=== PATIENT | female | born 1945 | race Two or more races ===

== ENCOUNTER 2023-08-16 22:06 | Emergency (ER) | payer OTHER, MEDICAID ==
[~2023-08-16] VITALS: Ht 162.6 cm; Wt 70.8 kg
[~2023-08-16 22:06] MED LIST: BUS5 PO; MULT-2253 PO; OSC500 PO; SENN-72 PO
[2023-08-16 22:13] VITALS: BP 122/74; PULSE 84; RESP 14; TEMP 97.3; O2SAT 96
[2023-08-16 22:25] VITALS: O2SAT 98
[2023-08-16] MEDS ORDERED: BACI-105 TP (22:48)
[2023-08-16] MEDS: BACITRACIN OINT 500 UNITS/GM PKT TP ONE (23:00)
[2023-08-16 23:15] VITALS: BP 117/70; PULSE 78; RESP 15; TEMP 97.9; O2SAT 98
== END 2023-08-16 23:15 | disposition home or self-care (01) ==
LOC: MED 22:06
DX: S00.511A Abrasion of lip, initial encounter (principal); S00.81XA Abrasion of other part of head, initial encounter; E11.9 Type 2 diabetes mellitus without complications; F03.90 Unspecified dementia, unspecified severity, without behavioral disturbance, psychotic disturbance, mood disturbance, and anxiety; E78.5 Hyperlipidemia, unspecified; Z86.69 Personal history of other diseases of the nervous system and sense organs; Z79.899 Other long term (current) drug therapy; Z88.8 Allergy status to other drugs, medicaments and biological substances; Z88.4 Allergy status to anesthetic agent; Y08.89XA Assault by other specified means, initial encounter; Y93.89 Activity, other specified; Y92.89 Other specified places as the place of occurrence of the external cause; Y99.8 Other external cause status
CPT/HCPCS: 90471; 90715; 99283

== ENCOUNTER 2023-12-02 18:35 | Emergency (ER) | payer OTHER, MEDICAID ==
[~2023-12-02] VITALS: Ht 157.5 cm; Wt 48.1 kg
[~2023-12-02 18:35] MED LIST changes: +BACI-105 TP
[2023-12-02 18:41] VITALS: BP 106/62; PULSE 78; RESP 14; TEMP 97.3; O2SAT 98
[2023-12-02 20:35] VITALS: BP 106/62; PULSE 78; RESP 14; TEMP 97.3; O2SAT 98
[2023-12-02] MEDS: LORazepam 0.5 MG TAB PO ONE (20:38)
== END 2023-12-02 20:35 | disposition home or self-care (01) ==
LOC: MED 18:35
DX: N81.10 Cystocele, unspecified (principal); Z79.899 Other long term (current) drug therapy; Z88.8 Allergy status to other drugs, medicaments and biological substances
CPT/HCPCS: 99284